=== PATIENT | female | born 1990 | race Caucasian/White ===

== ENCOUNTER 2017-07-30 08:19 | Emergency (ER) | payer OTHER ==
[~2017-07-30] VITALS: Ht 152.4 cm; Wt 86.4 kg
[~2017-07-30 08:19] MED LIST: CEPH-512 PO; IBUP400T22 PO; SULF1TAB35 PO
[2017-07-30 08:21] VITALS: BP 118/73; PULSE 82; RESP 16; O2SAT 97
[2017-07-30 08:44] LABS: BASOPHILS % (AUTO) 0.1 % (0-3); EOSINOPHILS % (AUTO) 1.1 % (0-5); MONOCYTES % (AUTO) 7.3 % (4-12); Mean Corpuscular Hemoglobin 29.8 pg (27.0-35.0); Mean Corpuscular Volume 86.4 fL (81-100); NEUTROPHILS % (AUTO) 74.4 % (40-74); Platelet Count 150 bil/L (150-400)
[2017-07-30 09:09] LABS: Magnesium 2.1 mg/dL (1.6-2.6)
--- NOTE | 2017-07-30 09:16 | ED.REPORT ---
HPI-General Illness Date of Service Jul 30, 2017 ED Provider: Salvatore Echeverria MD Pt is a 6 weeks 27 year old female who presents to the ED complaining of weakness onset 2 days ago. She c/o associated shaking, vomiting, decreased appetite, diarrhea, non-productive cough while at rest, nausea, mild rhinorrhea , and decreased fluid intake. She denies hematochezia, nasal congestion, sore throat, sob, chest pain, abdominal pain, fever, hemetemesis. Pt reports that [place], but she dropped her kids off; they did not get ill. The pt is concerned that she is dehydrated. Pt reports that her diarrhea is watery with 5 episodes onset yesterday and 2 episodes today.. Nursing Notes Stated Complaint: NAUSEA/SHAKY Chief Complaint: General Complaint Nursing Notes Reviewed: Yes Allergies: Coded Allergies: No Known Allergies (Unverified , 07/30/17) Scheduled PRN Metoclopramide (Reglan) 10 Mg Tablet 10 MG PO QID PRN PRN For Nausea General Time Seen by MD: 09:08 Chief Complaint Weakness Hx Obtained From: Patient Arrived By: Walk-in Sudden in Onset?: No Onset Occurred: 2 days ago Symptom Duration: Since onset Severity: Current: No pain currently Severity: Maximum: No pain Recent Healthcare: No recent doctor visit, No recent hospitalization Similar Sx Previous: No Past Medical History Past Medical History 6 weeks - 07/30/17 Gestational diabetes Anxiety Kidney stones Reports: Depression Past Surgical History Reports: , Cholecystectomy Smoking History Former Smoker Social History Alcohol Use: Denies alcohol use Drug Use: Denies drug use Other Social History: Lives with children Ambulatory Status Independent Review of Systems + decreased appetite + decreased fluid intake Full Review of Systems Constitutional: Reports: Weakness - generalized, Denies: Fever Ears / Nose / Throat: Denies: Nasal congestion, Sore throat Respiratory: Reports: Non-productive cough, Denies: Shortness of breath Cardiovascular: Denies: Chest pain GI: Reports: Diarrhea, Nausea, Vomiting, Denies: Abdominal pain, Hematemesis, Hematochezia Allergy / Immune: Reports: Rhinorrhea Neurologic: Reports: Shaking Complete sys rev & neg: except as marked. Physical Exam Vital Signs Vital Signs Date Time Temp Pulse Resp B/P Pulse Ox O2 Delivery O2 Flow Rate FiO2 07/30/17 10:32 36.6 84 16 93/56 100 Room Air 07/30/17 08:21 36.9 82 16 118/73 97 Room Air Initial VS: Reviewed Head / Eyes: Atraumatic, Normocephalic Neck: Supple, Full range of motion Respiratory: Breath sounds normal, Clear to auscultation, No respiratory distress Abdomen / GI: Soft, Non-tender Extremities: Vascular intact, Neuro intact Skin: Warm, Dry, No cyanosis Neurologic: Alert, Oriented, Nonfocal Psychiatric: Mood/affect normal, Behavior normal General/Constitutional: Awake, Alert ENT: Airway patent Oropharnx is clear Cardiovascular: Heart rate NL, Regular rhythm, Heart sounds NL, No murmurs Interpretation & Diagnostics Lab Results Interpretation Result Diagram: 07/30/17 0837 07/30/17 0837 Test 07/30/17 08:37 07/30/17 09:14 White Blood Count 7.5th/mm3 (3.8-10.1) Red Blood Count 4.57mil/mm3 (3.90-5.20) Hemoglobin 13.6g/dL (12.0-15.6) Hematocrit 39.5% (35.0-46.0) Mean Corpuscular Volume 86.4fL (81-100) Mean Corpuscular Hemoglobin 29.8pg (27.0-35.0) Mean Corpuscular Hemoglobin Concent 34.4% (32.0-37.0) Red Cell Distribution Width 12.9% (12.3-15.4) Platelet Count 150bil/L (150-400) Neutrophils (%) (Auto) 74.4% (40-74) Lymphocytes (%) (Auto) 17.0% (14-46) Monocytes (%) (Auto) 7.3% (4-12) Eosinophils (%) (Auto) 1.1% (0-5) Basophils (%) (Auto) 0.1% (0-3) Sodium Level 135mEq/L (134-144) Potassium Level 3.9mEq/L (3.5-5.2) Chloride Level 99mEq/L (97-108) Carbon Dioxide Level 21mmol/L (18-29) Blood Urea Nitrogen 10mg/dL (6-20) Creatinine 0.68mg/dL (0.57-1.00) Estimat Glomerular Filtration Rate 147mL/min (>59) Glucose Level 96mg/dL (60-99) Calcium Level 9.6mg/dL (8.5-10.1) Magnesium Level 2.1mg/dL (1.6-2.6) Total Bilirubin 0.6mg/dL (0.0-1.2) Aspartate Amino Transf (AST/SGOT) 18U/L (0-50) Alanine Aminotransferase (ALT/SGPT) 22U/L (0-32) Alkaline Phosphatase 52U/L (25-150) Total Protein 7.7g/dL (6.4-8.4) Albumin 4.5g/dL (3.4-5.0) Lipase 16U/L (13-60) Hold [place] Top Tube Received (Received) Urine Color Dark yellow (YELLOW) Urine Appearance Turbid (CLEAR,HAZY) Urine pH 5.5 (5.0-8.0) Urine Specific Combs 1.020 (1.003-1.035) Urine Protein Tracemg/dL (NEG,TRACE) Urine Glucose (UA) Negativemg/dL (NEGATIVE) Urine Ketones Tracemg/dL (NEGATIVE) Urine Occult Blood Trace (NEGATIVE) Urine Nitrite Negative (NEGATIVE) Urine Bilirubin Negative (NEGATIVE) Urine Urobilinogen Normalmg/dL (NORMAL) Urine Leukocyte Esterase Negative (NEGATIVE) Urine RBC 0-2/hpf (0-2) Urine WBC 0-5/hpf (0-5) Urine Epithelial Cells Occasional/hpf (NONE-MOD) Urine Crystals Amorphous urates (NONE Urine Bacteria Few/hpf (NONE-FEW) Urine Hyaline Casts None/lpf (NONE) Urine Granular Casts None seen (NONE SEEN) Urine Waxy Casts None seen (NONE SEEN) Urine Red Blood Cell Casts None seen (NONE SEEN) Urine White Blood Cell Casts None seen (NONE SEEN) Urine Mucus None seen (None Seen) Urine Trichomonas None seen (NONE SEEN) Urine Yeast None (NONE SEEN) Urinalysis Comment None Urine Culture Reflexed Not indicated Re-Eval/Medical Decision Med Decision/Clinical Course 27-year-old female nausea vomiting diarrhea. He had no diarrhea while she was here and her nausea resolved. Vital signs are stable her labs are unremarkable. She felt better with IV fluids. Likely viral gastroenteritis. His judgment Zofran with plans to return with stool collection should her diarrhea continue given resolution while she was here. Return precautions given. Source of Hx: Old records Time of Eval: 09:39 Re-Evaluation/Progress Note: Informed pt of plan for treatment. Pt understands and agrees with plan for treatment. All questions addressed. Time of Eval: 11:00 Re-Evaluation/Progress Note: Pt rechecked. Informed pt of plan for discharge. Pt understands and agrees with plan for discharge. F/U instructions and RTER warnings given. All questions addressed. Counseled Regarding: Diagnosis, Lab results, Need for follow-up, When/why to return to ED Discharge & Departure Primary Impression: Gastroenteritis Disposition: Home Discharge Condition All VS Reviewed: Yes Condition: Stable Patient Instructions: Gastroenteritis (ED) Additional Instructions: Thank you for trusting us with you care today. I suspect that you have gastroenteritis. Bring back stool if your diarrhea persists. Call your primary care provider today for a follow up appointment tomorrow. Return to the Emergency Department for any new or concerning symptoms such as abdominal pain, fever, nausea, vomiting, or blood diarrhea. Referrals: [facility] Scribe Attestation Portions of this note were transcribed by Kiersten Crane. I, Dr. Echeverria personally performed the history, physical exam and medical decision-making; I reviewed and confirmed the accuracy of the information in the transcribed note. Signed by: Paulie Hobbs, 07/30/17. copies to: [facility] Salvatore Echeverria MD Jul 30, 2017 09:16 Kiersten Hammond Jul 30, 2017 09:21
[2017-07-30] MEDS ORDERED: 0.9% Sodium Chloride 1,000 ML IV ONE (09:20)
[2017-07-30] MEDS ORDERED: MetoCLOpramide 5 mg/mL 2 mL Inj IVPUSH ONE (09:45)
[2017-07-30 10:32] VITALS: BP 93/56; PULSE 84; RESP 16; O2SAT 100
[2017-07-30] MEDS ORDERED: METO-301 PO (10:49)
[2017-07-30 11:05] LABS: APPEARANCE,URINE TURBID (CLEAR,HAZY); COLOR,URINE DARK YELLOW (YELLOW); OCCULT BLOOD,URINE TRACE (NEGATIVE); PH,URINE 5.5 (5.0-8.0); UROBILINOGEN,URINE NORMAL (NORMAL)
== END 2017-07-30 10:53 | disposition home or self-care (01) ==
LOC: SED 08:19
DX: O99.611 Diseases of the digestive system complicating pregnancy, first trimester (principal); K52.9 Noninfective gastroenteritis and colitis, unspecified; F41.8 Other specified anxiety disorders; Z87.442 Personal history of urinary calculi; Z90.49 Acquired absence of other specified parts of digestive tract; Z3A.01 Less than 8 weeks gestation of pregnancy; Z87.891 Personal history of nicotine dependence
CPT/HCPCS: 36415; 80053; 81000; 81025; 83690; 83735; 85025; 96361; 96374; 99284; J2765; J7030